=== PATIENT | male | born 2000 | race Caucasian/White ===

== ENCOUNTER 2023-02-16 05:33 | Emergency (ER) | payer BC, OTHER ==
[2023-02-16] MEDS ORDERED: Ibuprofen 400 MG Tab PO ONE (05:40)
[2023-02-16] MEDS ORDERED: Acetaminophen 325 MG Tab PO ONE (05:40)
[2023-02-16] MEDS ORDERED: Bacitracin Oint 28.35 GM Tube TOP STA (05:40)
[2023-02-16] MEDS ORDERED: Diphtheria,Pertussis(Acell),Tetanus Vaccine 0.5 ML Syringe IM ONE (05:40)
[2023-02-16 06:04] VITALS: BP 127/86; PULSE 82
== END 2023-02-16 07:30 | disposition home or self-care (01) ==
LOC: MW.ED 05:33
DX: T23.231A Burn of second degree of multiple right fingers (nail), not including thumb, initial encounter (principal); T22.111A Burn of first degree of right forearm, initial encounter; Z23 Encounter for immunization; Z88.0 Allergy status to penicillin; X16.XXXA Contact with hot heating appliances, radiators and pipes, initial encounter; Y92.89 Other specified places as the place of occurrence of the external cause; Y99.0 Civilian activity done for income or pay
CPT/HCPCS: 90471; 90715; 99283; A9270

== ENCOUNTER 2023-08-01 07:26 | Emergency (ER) | payer MEDICAID, OTHER ==
[2023-08-01] MEDS ORDERED: Ibuprofen 600 MG Tab PO ONE (07:49)
[2023-08-01 09:01] VITALS: BP 114/72; PULSE 85
== END 2023-08-01 08:57 | disposition home or self-care (01) ==
LOC: MW.ED 07:26
DX: S92.324A Nondisplaced fracture of second metatarsal bone, right foot, initial encounter for closed fracture (principal); Z88.0 Allergy status to penicillin; Z86.16 Personal history of COVID-19; W20.8XXA Other cause of strike by thrown, projected or falling object, initial encounter
CPT/HCPCS: 29515; 73630; 99283; A9270